=== PATIENT | female | born 1995 | race American Indian/Alaskan Native ===

== ENCOUNTER 2017-03-21 01:29 | Outpatient (CLI) | payer MEDICAID ==
[2017-03-21 01:45] VITALS: BP 114/55
== END 2017-03-21 02:20 | disposition home or self-care (01) ==
LOC: TRG 01:29
PROVIDERS: ATTEND Obstetrics & Gynecology
DX: O48.0 Post-term pregnancy (principal); Z3A.40 40 weeks gestation of pregnancy

== ENCOUNTER 2017-03-24 20:11 | Inpatient (IN) | payer MEDICAID ==
[2017-03-24] MEDS ORDERED: STADOL IV PRN (20:55)
[2017-03-24] MEDS ORDERED: XYLOCAINE 2% INFILTRATI ONE (20:55)
[2017-03-24] MEDS ORDERED: SUBLIMAZE IV PRN (20:55)
[2017-03-24] MEDS ORDERED: POLYCILLIN/NS 2 GM/100 ML 2 GM/100 ML BAG IV ONE (20:56)
[2017-03-24] MEDS ORDERED: PITOCin/NS 20 UNIT/1000ML DRIP 20 UNITS/1,000 ML BAG IV SCH ×2 (21:00→22:20)
[2017-03-24] MEDS ORDERED: LACTATED RINGERS 1,000 ML IV SCH (21:00)
[2017-03-24 21:40] LABS: Urine Drugs of Abuse Note Disclamer
[2017-03-24 22:04] LABS: Hematocrit 31.7 % (30.3-42.9); Hemoglobin 10.4 gm/dl (10.1-14.3); Mean Corpuscular HGB Conc 33 % (30-34); Mean Corpuscular Volume 78 fl (79-97); Platelet Count 323 K/mm3 (140-440); Red Blood Count 4.08 M/mm3 (3.65-5.03); Red Cell Distribution Width 16.4 % (13.2-15.2); White Blood Count 10.3 K/mm3 (4.5-11.0)
[2017-03-24 22:05] LABS: Mean Corpuscular Hemoglobin 25 pg (28-32)
[2017-03-24 22:13] LABS: HIV-1 Antigen p24 Non React (Non React); HIVR-1/2 Ab Non React (Non React)
[2017-03-24] MEDS ORDERED: MAGNESIUM SULFATE 4GM/100ML 4 GM/100 ML BAG IV ONE (22:24)
--- NOTE | 2017-03-24 22:51 | Event Note ---
Date: 03/24/17 [place] ceci [place] called overhead in room 2006. On my arrival, patient said to have had a generalized tonic-clonic seizure; seizure had apparently resolved at my arrival. Patient not postictal, and no loss of continence. She was already fully dilated and fetus . Fetus delivered without incident, see delivery note. Patient alert and oriented 3 and vitals stable, satting over 90% on room air. Patient however still complaining of chest pain. CECI [place] canceled and Ceci Peña called. 4 gram loading dose of magnesium given and then mag at 2 g per hour. Her physician has been notified
--- NOTE | 2017-03-24 22:55 | Procedure Note ---
OB Delivery Note - Delivery Date of Delivery: 03/24/17 Surgeon: SHABANA OROZCO Estimated blood loss: 200cc - Vaginal Delivery presentation: vertex Delivery position: OA Intrapartum events: seizure activity Delivery monitor: external FHT, external uterine Route of delivery: Delivery placenta: spontaneous Delivery cord: 3 umbilical vessels Episiotomy: none Delivery laceration: 1st degree Anesthesia: none Delivery comments: Patient with generalized tonic-clonic seizure just prior to delivery, started her on magnesium per protocol - Infant A Infant Gender: Male (time of delivery 20:24, weight 6 lbs. 14 oz. or 3120 g)
[2017-03-24] MEDS ORDERED: MAGNESIUM SULFATE 40GM/1000ML 40 GM/1,000 ML BAG IV ONE (23:04)
[2017-03-24] MEDS ORDERED: MAGNESIUM SULFATE IV ONE (23:05)
--- NOTE | 2017-03-25 00:16 | History and Physical Report ---
History of Present Illness Date of examination: 03/24/17 Date of admission: 03/24/17 20:59 Chief complaint: I'm having contractions History of present illness: Patient is a 21 year old who presents at 41.5weeks in labor. Patient states that she gets care at [facility] but chose to walk in unassigned to [facility] on today. No records are available for review. Patient denies any complications with this . Past History Past Medical History: no pertinent history - Obstetrical History Expected Date of Delivery: 03/20/17 Actual Gestation: 40 Week(s) 5 Day(s) : 4 Para: 3 Number of Living Children: 3 Medications and Allergies Allergies Allergy/AdvReac Type Severity Reaction Status Date / Time latex Allergy Severe Hives Verified 01/25/16 22:22 Home Medications Medication Instructions Recorded Confirmed Last Taken Type Vits96/Iron Fum/Folic 1 each PO QDAY 12/10/13 03/24/17 03/24/17 History [ Tablet] Active Meds: Active Medications Butorphanol Tartrate (Stadol) 2 mg IV Q2H PRN PRN Reason: Pain , Severe (7-10) Last Admin: 03/24/17 21:40 Dose: 2 mg Fentanyl (Sublimaze) 100 mcg IV Q2H PRN PRN Reason: Labor Pain Lactated Ringer's (Lactated Ringers) 1,000 mls @ 125 mls/hr IV DIRECT TISHA Last Admin: 03/24/17 21:40 Dose: 125 mls/hr Oxytocin/Sodium Chloride (Pitocin/Ns 20 Unit/1000ml Drip) 20 units in 1,000 mls @ 125 mls/hr IV DIRECT TISHA Ampicillin Sodium (Polycillin/Ns 1 Gm/50 Ml) 1 gm in 50 mls @ 100 mls/hr IV Q4H TISHA PRN Reason: Protocol Magnesium Sulfate (Magnesium Sulfate) 1 gm IV ONCE ONE Stop: 03/24/17 23:06 Review of Systems All systems: negative - Vital Signs Vital signs: Vital Signs Temp Resp 98.1 F 18 03/24/17 20:25 03/24/17 20:25 Temp Pulse Resp BP Pulse Ox 98.6 F 77 20 118/56 99 03/25/17 00:08 03/25/17 00:12 03/25/17 00:08 03/25/17 00:10 03/25/17 00:12 - Physical Exam Cardiovascular: Regular rate, Normal S1, Normal S2 Lungs: Positive: Clear to auscultation, Normal air movement Abdomen: Positive: normal appearance, soft, normal bowel sounds Genitourinary (Female): Positive: normal external genitalia, normal perenium Vulva: both: normal Vagina: Positive: normal moisture Uterus: Positive: normal size Results Result Diagrams: 03/24/17 21:10 Abnormal lab results 03/24/17 Range/Units 21:10 MCV 78 L (79-97) fl MCH 25 L (28-32) pg RDW 16.4 H (13.2-15.2) % All other labs normal. Assessment and Plan Patient is a 21 year old who presents in labor.Admit for labor. Anticipate
[2017-03-25] MEDS ORDERED: POLYCILLIN/NS 1 GM/50 ML 1 GM/50 ML BAG IV SCH (01:00)
[2017-03-25] MEDS ORDERED: PHENERGAN PR PRN (01:31)
[2017-03-25] MEDS ORDERED: ZOFRAN IV PRN (01:31)
[2017-03-25] MEDS ORDERED: MILK OF MAGNESIA PO PRN (01:31)
[2017-03-25] MEDS ORDERED: TYLENOL PO PRN (01:31)
[2017-03-25] MEDS ORDERED: DULCOLAX PR PRN (01:31)
[2017-03-25] MEDS ORDERED: PHENERGAN PO PRN (01:31)
[2017-03-25] MEDS ORDERED: BENADRYL PO PRN (01:31)
[2017-03-25] MEDS ORDERED: DERMOPLAST TP PRN (01:54)
[2017-03-25] MEDS ORDERED: SODIUM CHLORIDE FLUSH SYRINGE 10 ML IV PRN (02:00)
[2017-03-25] MEDS: MOTRIN PO SCH ×3 (02:09→23:45)
[2017-03-25] MEDS: TUCKS PAD TP PRN ×2 (02:14→21:56)
[2017-03-25] MEDS: NORCO 5/325 PO PRN (09:06)
[2017-03-25] MEDS: COLACE PO SCH ×2 (09:09→21:56)
[2017-03-25] MEDS: PRENATAL VITAMIN PO SCH (10:00)
[2017-03-25 14:08] LABS: Hematocrit 27.2 % (30.3-42.9); Hemoglobin 8.5 gm/dl (10.1-14.3)
[2017-03-26] MEDS: MOTRIN PO SCH ×2 (02:03→16:51)
[2017-03-26] MEDS: NORCO 5/325 PO PRN (06:08)
[2017-03-26] MEDS ORDERED: FEOSOL PO SCH (10:00)
[2017-03-26] MEDS: COLACE PO SCH (10:19)
[2017-03-26] MEDS: PRENATAL VITAMIN PO SCH (10:19)
--- NOTE | 2017-03-26 12:17 | Progress Note ---
Assessment and Plan PPD 2 s/p . Doing well.Will discharge on today Subjective - Subjective Date of service: 03/26/17 Interval history: Patient is a 21 year old who presents at 41.5weeks in labor. Patient states that she gets care at [facility] but chose to walk in unassigned to [facility] on today. No records are available for review. Patient denies any complications with this . Patient reports: appetite normal, voiding normally, pain well controlled, ambulating normally, other (mild dizziness) [place]: doing well Objective - Vital Signs Latest vital signs: Vital Signs Temp Pulse Resp BP 03/26/17 07:40 97.9 F 63 16 107/49 03/26/17 01:55 98.6 F 69 16 111/72 03/25/17 16:52 98.1 F 80 20 115/63 03/25/17 12:35 98.4 F 89 18 100/47 Intake and Output 03/25/17 03/26/17 03/26/17 22:59 06:59 14:59 Intake Total 360 300 120 Output Total 500 Balance -140 300 120 Intake: Oral 360 120 Intake, Free Water 300 Output: Urine 500 Void 500 Other: Total, Intake Amount 360 120 Total, Output Amount 500 # Voids Void 1 - Exam Cardiovascular: Present: Regular rate, Normal S1, Normal S2 Lungs: Present: Clear to auscultation, Normal air movement Abdomen: Present: normal appearance, soft, normal bowel sounds Vulva: both: normal Extremities: Present: normal - Labs Labs: Abnormal lab results 03/25/17 Range/Units 13:55 Hgb 8.5 L (10.1-14.3) gm/dl Hct 27.2 L (30.3-42.9) %
--- NOTE | 2017-03-26 12:22 | Discharge Summary ---
Providers - Providers Date of Admission: 03/24/17 20:59 Date of discharge: 03/26/17 Attending physician: BLAKE AVILES Primary care physician: BLAKE AVILES Hospitalization Reason for admission: active labor Delivery: Episiotomy: none Incision: normal Discharge diagnosis: IUP at term delivered [place] baby: female Hospital course: Patient had seizure just prior to labor which resolved without difficulty with no sequelae Condition at discharge: Good Disposition: DC-01 TO HOME OR SELFCARE Plan - Discharge Medications Prescriptions: Ibuprofen [Motrin] 800 mg PO Q8HR PRN #40 tablet PRN Reason: Pain - Provider Discharge Summary Additional instructions: [] Smoking cessation referral if applicable(refer to patient education folder for contact #) [] Refer to [facility]'s [facility] Booklet Call your doctor immediately for: * Fever > 100.5 * Heavy vaginal bleeding ( >1 pad per hour) * Severe persistent headache * Shortness of breath * Reddened, hot, painful area to leg or breast * Drainage or odor from incision. * Keep incision clean and dry at all times and follow doctor's instructions regarding bathing/showering - Follow up plan Follow up: BLAKE AVILES MD [Primary Care Provider] - 7 Days
[2017-03-26 22:24] VITALS: BP 115/68
[2017-03-26] MEDS: TUCKS PAD TP PRN (23:11)
== END 2017-03-26 23:35 | disposition home or self-care (01) | DRG 775 ==
LOC: TRG 20:11 → LD 20:59 → OB 03-25 00:51
PROVIDERS: ADMIT Obstetrics & Gynecology; ATTEND Obstetrics & Gynecology
PROC: 10E0XZZ Delivery of Products of Conception, External Approach (ICD-10-PCS; principal; 2017-03-24)
PROC: 0HQ9XZZ Repair Perineum Skin, External Approach (ICD-10-PCS; 2017-03-24)
DX: O99.354 Diseases of the nervous system complicating childbirth (principal); O70.0 First degree perineal laceration during delivery; Z37.0 Single live birth; Z91.040 Latex allergy status; Z3A.40 40 weeks gestation of pregnancy; R56.9 Unspecified convulsions
CPT/HCPCS: 36415; 80307; 85014; 85018; 85027; 85660; 86592; 86706; 86762; 86803; 86850; 86900; 86901; 87806; 93005; 93010; 99211; G0463; J0290; J0595; J2590; J3475; J7120